=== PATIENT | male | born 1975 | race Caucasian/White ===

== ENCOUNTER 2018-12-17 01:35 | Emergency (ER) | payer BC, OTHER ==
--- NOTE | 2018-12-17 02:30 | EDM.PDOC ---
ED HPI GENERAL MEDICAL PROBLEM - General Chief Complaint: Skin Complaint Stated Complaint: RASH ON HANDS Time Seen by Provider: 12/17/18 02:15 Source of Information: Reports: Patient History Limitations: Reports: No Limitations - History of Present Illness INITIAL COMMENTS - FREE TEXT/NARRATIVE: 43-year-old male arrives with a very itchy rash on his hands. He had a sore throat 3 or 4 days ago, followed by a fever both of which seemed to have broken , but he was moving a large log was some black mold or fungus 2 days ago at work and now has developed this rash on his hands. It is not painful but it's very itchy. Onset: Gradual Duration: Day(s): (Last 12-24 hours) Location: Reports: Upper Extremity, Left, Upper Extremity, Right Associated Symptoms: Reports: Fever/Chills (3 days ago), Other (Sore throat) bilateral hands Pain Score (Numeric/FACES): 7 - Related Data Allergies Allergy/AdvReac Type Severity Reaction Status Date / Time bee venom protein (honey bee) Allergy Swelling Verified 12/17/18 02:00 phenobarbital Allergy Cannot Verified 12/17/18 02:00 Remember Home Meds: Home Meds NK [No Known Home Meds] 12/17/18 [History] Social & Family History - Tobacco Use Smoking Status *Q: Never Smoker - Caffeine Use Caffeine Use: Reports: Coffee - Recreational Drug Use Recreational Drug Use: No ED ROS GENERAL - Review of Systems Review Of Systems: See Below Constitutional: Reports: Fever, Chills, Malaise HEENT: Reports: Throat Pain. Denies: Rhinitis Respiratory: Denies: Shortness of Breath, Cough Cardiovascular: Denies: Chest Pain GI/Abdominal: Denies: Abdominal Pain, Nausea, Vomiting Skin: Reports: Rash Neurological: Denies: Headache Psychiatric: Reports: No Symptoms ED EXAM, SKIN/RASH Exam: See Below Exam Limited By: No Limitations General Appearance: Alert, No Apparent Distress Eye Exam: Bilateral Eye: Normal Inspection Throat/Mouth: Normal Inspection Head: Atraumatic Neck: Normal Inspection. No: Lymphadenopathy (R), Lymphadenopathy (L) Respiratory/Chest: No Respiratory Distress, Lungs Clear Neurological: Alert, Oriented Skin: Other (Patient has numerous macular small areas of erythema on the palms and dorsal aspects of both hands, the majority on the palmar surface. He has no lesions on the feet. A few have been blistered and broken.) Course - Vital Signs Last Recorded V/S: Last Vital Signs Temp 98.0 F 12/17/18 02:03 Pulse 119 H 12/17/18 02:03 Resp 16 12/17/18 02:03 BP 133/95 H 12/17/18 02:03 Pulse Ox 97 12/17/18 02:03 - Orders/Labs/Meds Orders: Active Orders 24 hr Category Date Time Status CULTURE STREP A CONFIRMATION [RM] Routine Lab 12/17/18 02:22 Results STREP SCRN A RAPID W CULT CONF [RM] Routine Lab 12/17/18 02:22 Results - Re-Assessments/Exams Free Text/Narrative Re-Assessment/Exam: 12/17/18 02:30 A rapid strep was obtained. If positive he'll be treated with antibiotics, if negative a course of steroids. 12/17/18 02:41 Strep is negative. Patient be placed on Medrol Dosepak and can recheck in 2-3 days if not improving satisfactorily. Return sooner if worsening. Departure - Departure Time of Disposition: 02:48 Disposition: Home, Self-Care 01 Clinical Impression: Contact dermatitis Qualifiers: Contact dermatitis type: unspecified Contact dermatitis trigger: unspecified trigger Qualified Code(s): L25.9 - Unspecified contact dermatitis, unspecified cause - Discharge Information Instructions: Hand Dermatitis Referrals: PCP,None [Primary Care Provider] - Forms: ED Department Discharge Care Plan Goals: Take Medrol Dosepak as prescribed, and increase activity as tolerated. Antihistamines may be beneficial, and return anytime if worsening despite treatment. Also consider rechecking in 3-4 days if not improving satisfactorily. - My Orders Last 24 Hours: My Active Orders 12/17/18 02:22 CULTURE STREP A CONFIRMATION [RM] Routine STREP SCRN A RAPID W CULT CONF [] Routine - Assessment/Plan Last 24 Hours: My Active Orders 12/17/18 02:22 CULTURE STREP A CONFIRMATION [RM] Routine STREP SCRN A RAPID W CULT CONF [] Routine
== END 2018-12-17 02:48 | disposition home or self-care (01) ==
LOC: JP.ED 01:35
DX: L25.9 Unspecified contact dermatitis, unspecified cause (principal); Z91.030 Bee allergy status; Z88.8 Allergy status to other drugs, medicaments and biological substances
CPT/HCPCS: 87081; 87880-QW; 99283